=== PATIENT | female | born 1965 | race Caucasian/White ===

== ENCOUNTER 2018-04-13 21:26 | Emergency (ER) | payer MEDICAID ==
[~2018-04-13] VITALS: Ht 165.1 cm; Wt 69.2 kg
[~2018-04-13 21:26] MED LIST: PHEN-716 PO; PHEN100C4 PO
[2018-04-13] MEDS ORDERED: ESCITALOPRAM 10MG TABLETS (22:05)
[2018-04-13] MEDS ORDERED: LATUDA 120 MG (22:05)
[2018-04-13] MEDS ORDERED: PRAZOSIN 1 MG (22:05)
[2018-04-13] MEDS ORDERED: normal saline 1000ML IV soln IVB ONE (22:25)
[2018-04-13] MEDS ORDERED: LORazepam 2 mg/ml vial IM ONE (22:25)
[2018-04-13 22:50] LABS: BASOPHILS # (AUTO) 0.1 X10'3 (0-0.2); BASOPHILS % (AUTO) 0.8 % (0-1); EOSINOPHILS # (AUTO) 0.3 X10'3 (0-0.9); EOSINOPHILS % (AUTO) 2.9 % (0-6); HEMATOCRIT 39.5 % (35.0-45.0); HEMOGLOBIN 13.6 g/dl (12.0-16.0); LYMPHOCYTES # (AUTO) 2.8 X10'3 (1.1-4.8); LYMPHOCYTES % (AUTO) 25.1 % (21-51); MEAN CORPUSCULAR HEMOGLOBIN 33.6 PG (27.0-31.0); MEAN CORPUSCULAR HGB CONC 34.5 % (33.0-36.5); MEAN CORPUSCULAR VOLUME 97.4 FL (78-98); MEAN PLATELET VOLUME 8.7 FL (7.4-10.4); MONOCYTES # (AUTO) 0.7 X10'3 (0-0.9); MONOCYTES % (AUTO) 6.2 % (2-12); NEUTROPHILS # (AUTO) 7.2 X10'3 (1.8-7.7); PLATELET COUNT 228 X10'3 (140-440); RED BLOOD COUNT 4.06 X10'6 (4.20-5.60); RED CELL DISTRIBUTION WIDTH 12.6 % (11.5-14.5); WHITE BLOOD COUNT 11.1 X10'3 (4.5-11.0)
[2018-04-13 23:00] LABS: ALANINE AMINOTRANSFERASE 24 U/L (12-78); ALBUMIN 3.3 G/DL (3.4-5.0); ALBUMIN/GLOBULIN RATIO 0.9 (1.1-1.5); ALKALINE PHOSPHATASE 106 IU/L (46-116); ANION GAP 10 (8-16); ASPARTATE AMINO TRANSFERASE 19 U/L (10-37); BILIRUBIN,TOTAL 0.5 MG/DL (0.1-1.0); BLOOD UREA NITROGEN 4 MG/DL (7-18); BUN/CREATININE RATIO 6.1 (6.6-38.0); CALCIUM 8.4 MG/DL (8.5-10.1); CHLORIDE 104 MMOL/L (99-107); CREATININE 0.66 MG/DL (0.40-0.90); GLUCOSE 110 MG/DL (70-104); PHENYTOIN (DILANTIN) 2.9 UG/ML (10.0-20.0); POTASSIUM 3.3 MMOL/L (3.5-5.1); SODIUM 139 MMOL/L (135-145); TOTAL CARBON DIOXIDE 24.8 MMOL/L (24-32); TOTAL PROTEIN 6.8 G/DL (6.4-8.2); eGFR > 90 ML/MIN
[2018-04-13] MEDS ORDERED: LORazepam 2 mg/ml vial IV ONE (23:00)
[2018-04-13 23:46] LABS: CLARITY,URINE CLEAR (Clear); COLOR,URINE YELLOW (Yellow); GLUCOSE, URINE NEGATIVE (Neg); KETONES,URINE NEGATIVE (Neg); LEUKOCYTE ESTERASE ,URINE NEGATIVE (Neg); NITRITES, URINE POSITIVE (Neg); OCCULT BLOOD,URINE SMALL (Neg); PROTEIN,URINE NEGATIVE (Neg); UROBILINOGEN,URINE 0.2 E.U/dL (0.2-1.0)
[2018-04-13 23:48] LABS: UA COLLECTION TYPE CLN CATCH MIDSTREAM
[2018-04-13 23:53] LABS: BACTERIA,URINE 4+ /HPF (Neg); RBC,URINE 0-2 /HPF (0-2); SQUAMOUS EPITHELIAL CELL,UR MODERATE /LPF (FEW); WBC,URINE 0-4 /HPF (0-4)
[2018-04-13] MEDS ORDERED: PHEN100C4 PO (23:54)
[2018-04-13] MEDS ORDERED: NORMAL SALINE IV ONE (23:55)
[2018-04-13] MEDS ORDERED: PHENYTOIN SOD IV ONE (23:55)
[2018-04-14 00:18] LABS: URINE AMPHETAMINE SCREEN NEGATIVE (Neg); URINE BARBITUATE SCREEN NEGATIVE (Neg); URINE BENZODIAZEPINES SCREEN NEGATIVE (Neg); URINE CANNABINOID SCREEN NEGATIVE (Neg); URINE COCAINE SCREEN NEGATIVE (Neg); URINE METHADONE SCREEN NEGATIVE (Neg); URINE OPIATE SCREEN NEGATIVE (Neg); URINE PHENCYCLIDINE SCREEN NEGATIVE (Neg)
[2018-04-14] MEDS ORDERED: NORMAL SALINE IV ONE (01:05)
[2018-04-14] MEDS ORDERED: FOSPHENYTOIN IV ONE (01:05)
[2018-04-14 03:23] VITALS: BP 119/81
== END 2018-04-14 03:25 | disposition home or self-care (01) ==
LOC: ER 21:26
DX: G40.509 Epileptic seizures related to external causes, not intractable, without status epilepticus (principal); T50.905A Adverse effect of unspecified drugs, medicaments and biological substances, initial encounter; Y92.9 Unspecified place or not applicable; F32.9 Major depressive disorder, single episode, unspecified; G43.909 Migraine, unspecified, not intractable, without status migrainosus; Z98.2 Presence of cerebrospinal fluid drainage device; Z91.040 Latex allergy status; Z91.018 Allergy to other foods
CPT/HCPCS: 36415; 80053; 80185; 80305; 81001; 85025; 87077; 87088; 87186; 96365; 96375; 99284; J2060; J7030; Q2009; J1165

== ENCOUNTER 2018-05-08 12:44 | Emergency (ER) | payer MEDICAID ==
[~2018-05-08 12:44] MED LIST changes: +ESCITALOPRAM 10MG TABLETS; +LATUDA 120 MG; +PRAZOSIN 1 MG
== END 2018-05-08 13:30 | disposition left against medical advice (07) ==
LOC: ER 12:45
DX: Z00.8 Encounter for other general examination (principal); Z53.21 Procedure and treatment not carried out due to patient leaving prior to being seen by health care provider

== ENCOUNTER 2020-07-15 16:37 | Emergency (ER) | payer MEDICAID ==
[~2020-07-15] VITALS: Ht 162.6 cm; Wt 90.0 kg
[2020-07-15 18:08] VITALS: BP 143/93
== END 2020-07-15 18:11 | disposition home or self-care (01) ==
LOC: ER 16:38
DX: S00.83XA Contusion of other part of head, initial encounter (principal); G43.909 Migraine, unspecified, not intractable, without status migrainosus; F32.9 Major depressive disorder, single episode, unspecified; Z86.69 Personal history of other diseases of the nervous system and sense organs; Z79.899 Other long term (current) drug therapy; Z91.040 Latex allergy status; Z91.018 Allergy to other foods; Y04.8XXA Assault by other bodily force, initial encounter; Y93.89 Activity, other specified; Y92.89 Other specified places as the place of occurrence of the external cause; Y99.8 Other external cause status
CPT/HCPCS: 70140; 99283

== ENCOUNTER 2020-11-02 20:54 | Emergency (ER) | payer MEDICAID ==
[~2020-11-02] VITALS: Ht 162.6 cm; Wt 90.0 kg
[2020-11-02 21:37] LABS: BASOPHILS # (AUTO) 0.1 X10'3 (0-0.2); BASOPHILS % (AUTO) 0.6 % (0-1); EOSINOPHILS # (AUTO) 0.7 X10'3 (0-0.9); EOSINOPHILS % (AUTO) 6.3 % (0-6); HEMATOCRIT 47.7 % (35.0-45.0); HEMOGLOBIN 16.5 g/dl (12.0-16.0); LYMPHOCYTES # (AUTO) 3.4 X10'3 (1.1-4.8); LYMPHOCYTES % (AUTO) 31.6 % (21-51); MEAN CORPUSCULAR HEMOGLOBIN 35.9 PG (27.0-31.0); MEAN CORPUSCULAR HGB CONC 34.6 g/dL (33.0-36.5); MEAN CORPUSCULAR VOLUME 103.8 FL (78-98); MEAN PLATELET VOLUME 9.6 FL (7.4-10.4); MONOCYTES # (AUTO) 0.7 X10'3 (0-0.9); MONOCYTES % (AUTO) 6.2 % (2-12); NEUTROPHILS % (AUTO) 55.3 % (42-75); PLATELET COUNT 251 X10'3 (140-440); RED CELL DISTRIBUTION WIDTH 12.9 % (11.5-14.5); WHITE BLOOD COUNT 10.8 X10'3 (4.5-11.0)
[2020-11-02 21:48] LABS: ALANINE AMINOTRANSFERASE 45 U/L (12-78); ALBUMIN 3.6 G/DL (3.4-5.0); ALBUMIN/GLOBULIN RATIO 0.9 (1.1-1.5); ALKALINE PHOSPHATASE 125 IU/L (46-116); ANION GAP 8 (8-16); ASPARTATE AMINO TRANSFERASE 21 U/L (10-37); BILIRUBIN,TOTAL 0.5 MG/DL (0.1-1.0); BLOOD UREA NITROGEN 4 MG/DL (7-18); BUN/CREATININE RATIO 4.5 (6.6-38.0); CHLORIDE 104 MMOL/L (99-107); CREATININE 0.88 MG/DL (0.40-0.90); GLUCOSE 103 MG/DL (70-104); POTASSIUM 3.5 MMOL/L (3.5-5.1); SODIUM 141 MMOL/L (135-145); TOTAL CARBON DIOXIDE 28.7 MMOL/L (24-32); TOTAL PROTEIN 7.5 G/DL (6.4-8.2); eGFR 67 ML/MIN
[2020-11-02 22:58] VITALS: BP 130/93
== END 2020-11-02 22:50 | disposition left against medical advice (07) ==
LOC: ER 20:55
DX: R06.02 Shortness of breath (principal); Z53.21 Procedure and treatment not carried out due to patient leaving prior to being seen by health care provider
CPT/HCPCS: 36415; 71045; 80053; 83880; 84484; 85025; 93005

== ENCOUNTER 2023-09-01 14:48 | Emergency (ER) | payer MEDICAID ==
[~2023-09-01] VITALS: Ht 162.6 cm; Wt 82.3 kg
[2023-09-01 15:50] VITALS: BP 146/84; PULSE 88; RESP 16; TEMP 98.1; O2SAT 97
== END 2023-09-01 20:55 | disposition left against medical advice (07) ==
LOC: ER 14:49
DX: S62.396A Other fracture of fifth metacarpal bone, right hand, initial encounter for closed fracture (principal); W18.39XA Other fall on same level, initial encounter; Y93.89 Activity, other specified; Y92.89 Other specified places as the place of occurrence of the external cause; Y99.8 Other external cause status
CPT/HCPCS: 73080; 73130; 99284

== ENCOUNTER 2024-06-07 11:54 | Emergency (ER) | payer MEDICAID ==
[~2024-06-07] VITALS: Ht 162.6 cm; Wt 89.8 kg
[~2024-06-07 11:54] MED LIST changes: +ARIP20TA21 PO; +BUDE90AE INH; +BUSP15TA7 PO; +ESCI20TA39 PO; -ESCITALOPRAM 10MG TABLETS; -LATUDA 120 MG; +LEVA15HF4 INH; +NICO-687 TD; -PHEN-716 PO; -PHEN100C4 PO; +PRAZ2CAP2 PO; -PRAZOSIN 1 MG; +TRAZ-256 PO
[2024-06-07 11:57] VITALS: BP 156/78; PULSE 83; RESP 18; O2SAT 98
[2024-06-07 12:35] LABS: URINE HCG NEGATIVE (NEG)
[2024-06-07 12:45] LABS: URINE AMPHETAMINE SCREEN NEGATIVE (Neg); URINE BARBITUATE SCREEN NEGATIVE (Neg); URINE BENZODIAZEPINES SCREEN NEGATIVE (Neg); URINE CANNABINOID SCREEN NEGATIVE (Neg); URINE COCAINE SCREEN NEGATIVE (Neg); URINE METHADONE SCREEN NEGATIVE (Neg); URINE OPIATE SCREEN NEGATIVE (Neg); URINE PHENCYCLIDINE SCREEN NEGATIVE (Neg)
[2024-06-07 13:06] LABS: BASOPHILS % (AUTO) 0.6 % (0-1); EOSINOPHILS # (AUTO) 0.1 X10'3 (0-0.9); EOSINOPHILS % (AUTO) 1.5 % (0-6); HEMATOCRIT 38.4 % (35.0-45.0); LYMPHOCYTES # (AUTO) 1.9 X10'3 (1.1-4.8); LYMPHOCYTES % (AUTO) 24.6 % (21-51); MEAN CORPUSCULAR HEMOGLOBIN 33.5 PG (27.0-31.0); MEAN CORPUSCULAR HGB CONC 33.9 g/dL (33.0-36.5); MEAN CORPUSCULAR VOLUME 98.9 FL (78-98); MEAN PLATELET VOLUME 8.3 FL (7.4-10.4); MONOCYTES # (AUTO) 0.6 X10'3 (0-0.9); MONOCYTES % (AUTO) 7.9 % (2-12); NEUTROPHILS # (AUTO) 5.2 X10'3 (1.8-7.7); NEUTROPHILS % (AUTO) 65.4 % (42-75); PLATELET COUNT 223 X10'3 (140-440); RED BLOOD COUNT 3.89 X10'6 (4.20-5.60); RED CELL DISTRIBUTION WIDTH 12.3 % (11.5-14.5); WHITE BLOOD COUNT 7.9 X10'3 (4.5-11.0)
[2024-06-07 13:28] LABS: ALBUMIN 3.4 G/DL (3.4-5.0); ANION GAP 0 (8-16); BLOOD UREA NITROGEN 9 MG/DL (7-18); BUN/CREATININE RATIO 12.2 (10.0-20.0); CALCIUM 8.7 MG/DL (8.5-10.1); CHLORIDE 106 MMOL/L (99-107); CREATININE 0.74 MG/DL (0.40-0.90); ETHANOL < 10 MG/DL (<10); GLUCOSE 100 MG/DL (70-104); POTASSIUM 3.9 MMOL/L (3.5-5.1); SODIUM 137 MMOL/L (135-145); THYROID STIMULATING HORMONE 0.98 ulU/ml (0.34-4.50); TOTAL CARBON DIOXIDE 30.7 MMOL/L (24-32); eCRCL 73 ML/MIN; eGFR 81 ML/MIN
[2024-06-07] MEDS ORDERED: LORA-269 PO (13:33)
[2024-06-07] MEDS: LORazepam 1 MG tablet PO ONE (13:34)
[2024-06-07 13:40] VITALS: TEMP 97.7
== END 2024-06-07 13:42 | disposition home or self-care (01) ==
LOC: ER 11:55
DX: F41.9 Anxiety disorder, unspecified (principal); Z20.822 Contact with and (suspected) exposure to COVID-19; G43.909 Migraine, unspecified, not intractable, without status migrainosus; F32.A Depression, unspecified; Z88.1 Allergy status to other antibiotic agents; Z91.040 Latex allergy status; Z91.018 Allergy to other foods; Z79.51 Long term (current) use of inhaled steroids; Z79.899 Other long term (current) drug therapy; Z98.890 Other specified postprocedural states
CPT/HCPCS: 36415; 80048; 80305; 80320; 81025; 84443; 85025; 87811; 99283

== ENCOUNTER 2024-08-27 12:05 | Emergency (ER) | payer MEDICAID ==
[~2024-08-27] VITALS: Ht 162.6 cm; Wt 93.6 kg
[~2024-08-27 12:05] MED LIST changes: -ARIP20TA21 PO; +ARIP20TA63 PO; +LORA-269 PO
[2024-08-27] MEDS ORDERED: acetaminophen 1,000mg/100ml IV 100 ML IV SCH (12:15)
[2024-08-27] MEDS: diphenhydrAMINE 50 mg/ml inj IV ONE (12:32)
[2024-08-27] MEDS: metoclopramide 5 mg/ml inj IV ONE (12:32)
[2024-08-27] MEDS: normal saline 1000ml 1,000 ML IV ONE (12:33)
[2024-08-27] MEDS: acetaminophen 1,000mg/100ml IV 100 ML IV ONE (12:33)
[2024-08-27 14:32] VITALS: BP 121/64; PULSE 74; RESP 16; TEMP 98.8; O2SAT 97
== END 2024-08-27 14:35 | disposition home or self-care (01) ==
LOC: ER 12:05
DX: G43.909 Migraine, unspecified, not intractable, without status migrainosus (principal); F32.A Depression, unspecified; H53.8 Other visual disturbances; Z91.040 Latex allergy status; Z88.1 Allergy status to other antibiotic agents; Z91.018 Allergy to other foods; Z79.899 Other long term (current) drug therapy
CPT/HCPCS: 70450; 96365; 96375; 99285; J0131; J1200; J2765; J7030

== ENCOUNTER 2025-03-03 19:51 | Emergency (ER) | payer MEDICAID ==
[~2025-03-03] VITALS: Ht 162.6 cm; Wt 72.8 kg
[~2025-03-03 19:51] MED LIST changes: -BUDE90AE INH; +BUDE90AE3 INH; -LEVA15HF4 INH; +LEVA15HF9 INH
[2025-03-03] MEDS ORDERED: OFLO5DRO5 RIGHT EAR (20:35)
--- NOTE | 2025-03-03 20:35 | Physician Documentation ---
History of Present Illness General Chief Complaint: Ear Pain Stated Complaint: R EAR PAIN Time Seen by MD: 20:15 [facility] History of Present Illness Initial Comments 59-year-old female who presents to the emergency department for evaluation of right your infection. Reports she has been told by physician that she has dental pain that is causing her your discomfort yet tonight no she had some bloody discharge from the ear. Reports she has been having otalgia for about a week with some muffled hearing. She denies history of diabetes. Medication Reconciliation Allergies: Coded Allergies: latex (Verified Allergy, Intermediate, HIVES, 06/07/24) azithromycin (Verified Allergy, Unknown, 06/07/24) strawberry (Verified Allergy, Unknown, 06/07/24) tomato (Verified Allergy, Unknown, 06/07/24) Scheduled Budesonide (Pulmicort Flexhaler), 1 PUFFS INH Q12H Buspirone HCl (Buspirone HCl), 1 TAB PO TID Escitalopram Oxalate (Escitalopram Oxalate), 1 TAB PO DAILY Nicotine 21 MG Patch* (Habitrol 21 MG Patch*), 1 PATCH TD DAILY Ofloxacin (Ofloxacin), 5 DROP RIGHT EAR Q12H Prazosin Hcl (Prazosin Hcl), 1 CAP PO HS Trazodone HCl (Trazodone HCl), 1 TAB PO HS Scheduled PRN Aripiprazole (Aripiprazole), 1 TAB PO HS PRN for sleep Levalbuterol Tartrate (Xopenex Hfa), 2 PUFFS INH Q4HPRN PRN for wheezing Lorazepam (Ativan), 1 TAB PO Q12H PRN PRN for anxiety Past Medical History Past Medical History: Migraine, Seizures, Depression Other Past Surgical History: 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, AVM embolization Drug Use: none Lives In: Home Review of Systems All Other Systems at this time: Reviewed and Negative Constitutional: Denies: fever, chills HENT: Reports: ear pain Physical Exam Physical Exam Vital Signs: RN Vital Signs have been reviewed: Yes, Temperature: 97.9, Source: Temporal, Heart Rate: 71, Respiratory Rate: 12, BP: 123/64, Pulse Oximetry: 98, Weight: 72.750 General Appearance: alert, WD/WN, mild distress Head: normal inspection Face: normal inspection Pupils/EOM/Fundus: PERRLA Ear: TM obscured, discharge, erythema, swelling, tenderness; No: TM perforated Nose: normal inspection Neck: supple Cardiovascular: normal peripheral pulses Back: normal inspection Extremities: normal range of motion Neurologic: oriented x4, homeowner association manager II-XII nml as tested Motor / Sensory: no motor deficit, no sensory deficit Psychiatric: normal mood/affect, anxiety Progress Results/Orders Results/Orders Vital Signs 03/03/25 20:03 Temp 97.9 Pulse 71 Resp 12 B/P (MAP) 123/64 Pulse Ox 98 Medical Decision Making Differential Diagnosis Examination history consistent with acute otitis externa. No clear evidence that the TM is perforated. We will begin ofloxacin drops. We will place five drops 4 times a day in the right ear for five days. She was discharged safe stable condition. No need for wicking, or clinical suspicion for malignant otitis externa or mastoiditis. Discharge safe stable condition to follow up with primary care/ENT or return if worse. Departure Disposition: HOME / SELF CARE / HOMELESS Impression: Primary Impression: Otitis externa Qualified Codes: H60.501 - Unspecified acute noninfective otitis externa, right ear Condition: Stable Discharge Instructions: Otitis Externa, [id number] Additional Instructions: Please begin ear drops as directed. You will place five drops in the right ear 4 times a day for five days. Please follow up with the primary care physician or the ENT doctor. Return to the emergency department if worse. Referrals: NO PRIMARY CARE PROVIDER (PCP) Prescriptions Ofloxacin (Ofloxacin) 0.3 % Drops 5 DROP RIGHT EAR Q12H, #5 ML 0 Refills Prov: CARLY LI 03/03/25 Education Educated: Patient Educated regarding: diagnosis, treatment Signature Scribe Signature: . Attestation: . CARLY LI March 03, 2025 20:35
[2025-03-03 20:55] VITALS: BP 130/70; PULSE 80; RESP 12; TEMP 97.8; O2SAT 99
== END 2025-03-03 21:00 | disposition home or self-care (01) ==
LOC: ER 19:51
DX: H60.91 Unspecified otitis externa, right ear (principal); Z88.1 Allergy status to other antibiotic agents
CPT/HCPCS: 99283

== ENCOUNTER 2025-03-16 09:55 | Emergency (ER) | payer MEDICAID ==
[~2025-03-16] VITALS: Ht 162.6 cm; Wt 61.9 kg
[~2025-03-16 09:55] MED LIST changes: +OFLO5DRO5 RIGHT EAR
[2025-03-16 10:09] VITALS: BP 108/65; PULSE 78; RESP 15; O2SAT 97
--- NOTE | 2025-03-16 10:45 | Physician Documentation ---
History of Present Illness ~ Chief Complaint: See Chief Complaint Stated Complaint: MED CLEARANCE Time Seen by MD: 10:23 OK to notify your PCP?: Yes Primary Medical Doctor: [facility] Source: patient Mode of Arrival: POV Exam Limitations: no limitations HPI 59-year-old female who is here due to a near syncopal episode that occurred this morning around 630. Patient states that she went outside to be with one of her friends and was speaking with one of her friends and she suddenly felt very hot" in temperature and states I had a feeling that I needed to sit down on the ground." Patient states that she sat down on the ground and feeling really hot and sweaty lasted for a few minutes and was associated with some nausea and then the symptoms resolved. She states the only other time she has experienced anything like this was when she has had a seizure but states she has not had a seizure since 2020. Patient has not been on any antiseizure meds in a year and a half now. She has an appointment to see her neurologist at [facility] next month. Because she lives at a facility through the [facility] [place] wanted [place] to come here to get a evaluation for her symptoms. Patient states I wanted to go to the movies with everybody this morning but they made me come here for evaluation. Patient denies any chest pain, palpitations, shortness of breath. Patient denies any previous syncopal episodes. Patient denies headache. Medication Reconciliation Allergies: Coded Allergies: latex (Verified Allergy, Intermediate, HIVES, 06/07/24) azithromycin (Verified Allergy, Unknown, 06/07/24) strawberry (Verified Allergy, Unknown, 06/07/24) tomato (Verified Allergy, Unknown, 06/07/24) Scheduled Budesonide (Pulmicort Flexhaler), 1 PUFFS INH Q12H Buspirone HCl (Buspirone HCl), 1 TAB PO TID Escitalopram Oxalate (Escitalopram Oxalate), 1 TAB PO DAILY Nicotine 21 MG Patch* (Habitrol 21 MG Patch*), 1 PATCH TD DAILY Ofloxacin (Ofloxacin), 5 DROP RIGHT EAR Q12H Prazosin Hcl (Prazosin Hcl), 1 CAP PO HS Trazodone HCl (Trazodone HCl), 1 TAB PO HS Scheduled PRN Aripiprazole (Aripiprazole), 1 TAB PO HS PRN for sleep Levalbuterol Tartrate (Xopenex Hfa), 2 PUFFS INH Q4HPRN PRN for wheezing Lorazepam (Ativan), 1 TAB PO Q12H PRN PRN for anxiety Past Medical History Past Medical History: Migraine, Seizures, Depression Other Past Surgical History: 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 HEENT: NCAT, EOMI, PERRL, normal oropharynx, moist oral mucosa. NECK: Supple, trachea midline. CARDIAC: Regular rate and rhythm, no murmurs, rubs, or gallops. Equal distal pulses. No lower extremity edema, cap refill less than 2 seconds. RESPIRATORY: Equal breath sounds, clear to auscultation bilaterally, no respiratory distress. GASTROINTESTINAL: Non distended, soft, nontender, No guarding or rebound. MUSCULOSKELETAL: Normal range of motion, nontender, no swelling. Normal gait. NEUROLOGICAL: Awake, alert, and oriented x 3. CN 2-12 INTACT SKIN: Warm/dry, no pallor, no rash. PSYCH: Alert and appropriate. Affect congruent with mood. Speech is clear. Good eye contact. Progress Results/Orders Results/Orders Orders - LUIS ALBERTO ANTHONY Hs Troponin I W Calculations (03/16/25 12:39) Hs Troponin I W Calculations (03/16/25 13:39) Completed Orders - LUIS ALBERTO ANTHONY Cbc/Diff (03/16/25 10:39) BMP (03/16/25 10:39) Hs Troponin I W Calculations (03/16/25 10:39) Stat Ekg (03/16/25 10:39) Vital Signs 03/16/25 10:09 Temp 98.6 Pulse 78 Resp 15 B/P (MAP) 108/65 Pulse Ox 97 Laboratory Tests Test 03/16/25 10:54 White Blood Count 8.5 Red Blood Count 4.05 L Hemoglobin 13.0 Hematocrit 38.4 Mean Corpuscular Volume 94.9 Mean Corpuscular Hemoglobin 32.1 H Mean Corpuscular Hemoglobin Concent 33.8 Red Cell Distribution Width 12.7 Platelet Count 189 Mean Platelet Volume 8.5 Neutrophils (%) (Auto) 59.0 Lymphocytes (%) (Auto) 31.8 Monocytes (%) (Auto) 6.1 Eosinophils (%) (Auto) 2.1 Basophils (%) (Auto) 1.0 Neutrophils # (Auto) 5.0 Lymphocytes # (Auto) 2.7 Monocytes # (Auto) 0.5 Eosinophils # (Auto) 0.2 Basophils # (Auto) 0.1 CBC Comment Sodium Level 139 Potassium Level 4.6 Chloride Level 102 Carbon Dioxide Level 32.5 H Anion Gap 5 L Blood Urea Nitrogen 5 L Creatinine 0.80 Estimated GFR/1.73 m2 74 BUN/Creatinine Ratio 6.3 L Glucose Level 96 Calcium Level 9.0 Troponin I High Sensitivity 4 Albumin 3.1 L Chemistry Comments Medical Decision Making Differential Dx:Considerations: Include: dehydration, Delirium Tr., DKA, encephalopathy, hypercalcemia, HHNC, hypoglycemia, hypernatremia, hyponatremia, hypoxia, postictal, closed head injury, C-spine injury, CVA, mass lesion, subar achnoid hemorrhage, drug overdose, encephalopathy, ETOH intoxication, medication toxicity, infection - meningitis, infection - sepsis, infection - UTI, heart failure, renal failure, respiratory failure, hyperthermia, hypothermia, other Additional Information Patient describes symptoms of a near syncopal episode. Patient did not ever complain of headaches and has no recent history of head trauma imaging of head was not performed. Patient did not have any seizure-like activity no trauma to tongue, loss of bowel or bladder and no post ictal period or period of LOC. Patient remained completely conscious entire time. Labs where done to make sure no evidence for NSTEMI or any hematologic or metabolic cause for her near syncopal episode this morning. Also in the differential is arrhythmia, ekg here normal, discussed recommendation for outpatient cardiology evaluation for holter monitor/xiopatch. Departure Time of Disposition: 10:47 Disposition: 01 HOME / SELF CARE / HOMELESS Impression: Primary Impression: Near syncope Condition: Stable Discharge Instructions: Near-Syncope, [id number] Additional Instructions: Patient describes symptoms of a near syncopal episode. Patient did not have any seizure-like activity no trauma to tongue, loss of bowel or bladder and no post ictal period or period of LOC. Patient remained completely conscious entire time. Labs where done to make sure no evidence for NSTEMI or any hematologic or metabolic cause for her near syncopal episode this morning. Also in the differential is arrhythmia, ekg here normal, discussed recommendation for outpat ient cardiology evaluation for holter monitor/xiopatch. Please f/u with PCP for referral to cardiology and if episode occurs again, return to ER for re-evaluation. Patient is medically cleared to return to facility. Referrals: NO PRIMARY CARE PROVIDER (PCP) Education Educated: Patient Educated regarding: diagnosis, treatment, need for follow up Signature Scribe Signature: x Attestation: LUIS ALBERTO Veras March 16, 2025 10:45
--- NOTE | 2025-03-16 10:59 | ELECTROCARDIOGRAPH REPORT ---
[facility] Test Date: 2025-03-16 Test Time: 10:58:22 Pat Name: MICHAEL BOSCH Department: EMERGENCY ROOM Room: Gender: F Internal Audit Senior Manager: NAVI : 1965 Requested By: LUIS ALBERTO ANTHONY Order Number: [id number] Reading MD: Measurements Intervals [place] Rate: 72 P: 83 OK: 145 QRS: 66 QRSD: 98 T: 54 QT: 426 QTc: 467 Interpretive Statements Sinus rhythm Please click the below link to view image of tracing.
[2025-03-16 11:03] LABS: BASOPHILS # (AUTO) 0.1 X10'3 (0-0.2); EOSINOPHILS # (AUTO) 0.2 X10'3 (0-0.9); EOSINOPHILS % (AUTO) 2.1 % (0-6); HEMATOCRIT 38.4 % (35.0-45.0); LYMPHOCYTES # (AUTO) 2.7 X10'3 (1.1-4.8); LYMPHOCYTES % (AUTO) 31.8 % (21-51); MEAN CORPUSCULAR HEMOGLOBIN 32.1 PG (27.0-31.0); MEAN CORPUSCULAR HGB CONC 33.8 g/dL (33.0-36.5); MEAN CORPUSCULAR VOLUME 94.9 FL (78-98); MEAN PLATELET VOLUME 8.5 FL (7.4-10.4); MONOCYTES # (AUTO) 0.5 X10'3 (0-0.9); MONOCYTES % (AUTO) 6.1 % (2-12); PLATELET COUNT 189 X10'3 (140-440); RED BLOOD COUNT 4.05 X10'6 (4.20-5.60); RED CELL DISTRIBUTION WIDTH 12.7 % (11.5-14.5); WHITE BLOOD COUNT 8.5 X10'3 (4.5-11.0)
[2025-03-16 11:10] LABS: ALBUMIN 3.1 G/DL (3.4-5.0); ANION GAP 5 (8-16); BLOOD UREA NITROGEN 5 MG/DL (7-18); BUN/CREATININE RATIO 6.3 (10.0-20.0); CHLORIDE 102 MMOL/L (99-107); GLUCOSE 96 MG/DL (70-104); SODIUM 139 MMOL/L (135-145); TOTAL CARBON DIOXIDE 32.5 MMOL/L (24-32); eCRCL 67 ML/MIN; eGFR 74 ML/MIN
[2025-03-16 11:13] LABS: POTASSIUM 4.6 MMOL/L (3.5-5.1)
[2025-03-16 12:05] VITALS: TEMP 98.6
== END 2025-03-16 12:06 | disposition home or self-care (01) ==
LOC: ER 09:56
DX: R55 Syncope and collapse (principal); F32.A Depression, unspecified; G43.909 Migraine, unspecified, not intractable, without status migrainosus; Z88.1 Allergy status to other antibiotic agents; Z91.040 Latex allergy status; Z91.018 Allergy to other foods; Z79.899 Other long term (current) drug therapy
CPT/HCPCS: 36415; 80048; 84484; 85025; 93005; 99284

== ENCOUNTER 2025-08-11 19:00 | Emergency (ER) | payer MEDICAID ==
[~2025-08-11] VITALS: Ht 162.6 cm; Wt 79.5 kg
[2025-08-11 19:06] VITALS: BP 138/86; PULSE 97; RESP 20; TEMP 98.9; O2SAT 99
--- NOTE | 2025-08-11 19:17 | Physician Documentation ---
HPI ~ General Chief Complaint: Tooth Problem Stated Complaint: TOOTH PAIN Time Seen by MD: 19:48 Primary Medical Doctor: [facility] Source: patient Mode of Arrival: POV Exam Limitations: no limitations History of Present Illness HPI Comment Patient presents with right lower quadrant dental pain/abscess onset five days ago. No fevers or chills. No difficulty breathing. Was asked, but otherwise denies review of systems. Medication Reconciliation Allergies: Coded Allergies: latex (Verified Allergy, Intermediate, HIVES, 08/11/25) azithromycin (Verified Allergy, Unknown, 08/11/25) strawberry (Verified Allergy, Unknown, 08/11/25) tomato (Verified Allergy, Unknown, 08/11/25) Scheduled Amox Tr/Potassium Clavulanate (Augmentin 875-125 Tablet), 1 TAB PO Q12H Budesonide (Pulmicort Flexhaler), 1 PUFFS INH Q12H Buspirone HCl (Buspirone HCl), 1 TAB PO TID Escitalopram Oxalate (Escitalopram Oxalate), 1 TAB PO DAILY Nicotine 21 MG Patch* (Habitrol 21 MG Patch*), 1 PATCH TD DAILY Ofloxacin (Ofloxacin), 5 DROP RIGHT EAR Q12H Prazosin Hcl (Prazosin Hcl), 1 CAP PO HS Trazodone HCl (Trazodone HCl), 1 TAB PO HS Scheduled PRN Aripiprazole (Aripiprazole), 1 TAB PO HS PRN for sleep Levalbuterol Tartrate (Xopenex Hfa), 2 PUFFS INH Q4HPRN PRN for wheezing Lorazepam (Ativan), 1 TAB PO Q12H PRN PRN for anxiety Past Medical History Past Medical History: Migraine, Seizures, Depression Other Past Surgical History: 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 Physical Exam Vital Signs: RN Vital Signs have been reviewed: Yes, Temperature: 98.9, Source: Oral, Heart Rate: 97, Respiratory Rate: 20, BP: 138/86, Pulse Oximetry: 99, Weight: 79.550 Pulse Oximetry Reflects: adequate oxygenation Physical Exam General: Awake, alert, oriented. No apparent distress Dental exam Positive dental caries poor dentition Multiple fractured/missing teeth +++abscess to the right anterior surface around #27 Gingiva tender erythematous / not erythematous Positive palpable dental abscess No occlusion, no mal-alignment, no TMJ tenderness bilaterally Positive / negative facial edema / erythema / tenderness Respiratory: Lungs are clear to auscultation bilaterally. No respiratory distress. Chest: Normal shape and size. No accessory muscle use. Cardiovascular: Regular rate and rhythm. S1-S2. No murmur, gallop, rub. Extremities: No lower extremity edema, cyanosis or clubbing. Neurologic: Alert and oriented x4. Nonfocal Psychiatric: Normal mood and affect. Skin: Normal color. Warm and dry. Procedures Procedures abscess to the anterior aspect of the right lower quadrent drained with 18G needle. Pt tolerated well. Progress Results/Orders Results/Orders Completed Orders - MIKKI ABBASI NP Ondansetron Disint. Tablet (Zofran Odt T (08/11/25 20:00) Amox Tr/Potassium Clavulanate (Augmentin (08/11/25 20:00) Vital Signs 08/11/25 08/11/25 19:06 20:13 Temp 98.9 Pulse 97 Resp 20 B/P (MAP) 138/86 Pulse Ox 99 Medical Decision Making Findings Patient presents with complaints of dental pain. Not immunosuppressed. Afebrile. Well-appearing. Patent airway. Low clinical suspicion for deep space infection and there is no concern for airway compromise. Multiple missing and broken teeth. Obvious caries are noted. No evidence of Gustavo's angina, periapical abscess. Patient instructed to treat pain with ibuprofen/acetaminophen until they see a dentist. Patient was treated for dental abscess with abx. Instructed to use warm salt water rinses. Discussed return precautions. Departure Time of Disposition: 19:57 Disposition: 01 HOME / SELF CARE / HOMELESS Impression: Primary Impression: Dental abscess Condition: Stable Discharge Instructions: Dental Abscess Referrals: NO PRIMARY CARE PROVIDER (PCP) Prescriptions Amox Tr/Potassium Clavulanate (Augmentin 875-125 Tablet) 1 Each Tablet 1 TAB PO Q12H for 10 Days, #20 TAB Prov: MIKKI ABBASI NP 08/11/25 Education Educated: Patient Educated regarding: diagnosis, treatment, need for follow up Signature Scribe Signature: No scribe Attestation: The note accurately reflects work and decisions made by me.Mikki Haney NP 08/12/25 17:56 This note was created with the assistance of voice recognition software whereby errors in grammar, syntax, and/or spelling may have occurred despite active proofreading efforts by the author. Please do not hesitate to contact the provider for clarification or for questions regarding the content of this document. MIKKI ABBASI NP Aug 11, 2025 19:17
[2025-08-11] MEDS ORDERED: AMOX-117 PO (19:58)
[2025-08-11] MEDS: ondansetron 4mg rapidly disintigrating tab PO ONE (20:27)
[2025-08-11] MEDS: amox tr/potassium clavulanate 875/125mg TAB PO ONE (20:27)
== END 2025-08-11 20:35 | disposition home or self-care (01) ==
LOC: ER 19:02
DX: K04.7 Periapical abscess without sinus (principal); G43.909 Migraine, unspecified, not intractable, without status migrainosus; F32.A Depression, unspecified; Z91.040 Latex allergy status; Z88.1 Allergy status to other antibiotic agents; Z91.018 Allergy to other foods; Z79.899 Other long term (current) drug therapy
CPT/HCPCS: 99283